=== PATIENT | male | born 1965 | race Caucasian/White ===

== ENCOUNTER 2021-06-27 09:09 | Outpatient (CLI) | payer OTHER ==
[2021-06-27] MEDS ORDERED: WELLBUTRIN SR100 MG PO (10:31)
== END 2021-06-27 09:23 | disposition home or self-care (01) ==
LOC: TOM 09:09
PROVIDERS: ATTEND General Practice
DX: G44.85 Primary stabbing headache (principal); R26.89 Other abnormalities of gait and mobility

== ENCOUNTER 2021-06-27 10:27 | Emergency (ER) | payer OTHER ==
[~2021-06-27] VITALS: Ht 165.1 cm; Wt 63.5 kg
[2021-06-27] MEDS ORDERED: WELLBUTRIN SR100 MG PO (10:31)
== END 2021-06-28 14:53 | disposition designated cancer center or children's hospital (05) ==
LOC: ER 10:27
DX: C79.31 Secondary malignant neoplasm of brain (principal); B58.2 Toxoplasma meningoencephalitis; Z21 Asymptomatic human immunodeficiency virus [HIV] infection status
CPT/HCPCS: 70552